=== PATIENT | female | born 1990 | race Caucasian/White ===

== ENCOUNTER 2016-11-14 22:56 | Emergency (ER) | payer OTHER ==
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
[2016-11-14] MEDS ORDERED: LET GEL TOPICAL 1 EA SYR TP ONE (23:59)
[2016-11-15] MEDS ORDERED: LET GEL TOPICAL 1 EA SYR TP ONE (00:03)
[2016-11-15 00:41] VITALS: BP 128/93; PULSE 80; RESP 16; TEMP 98.1; O2SAT 97
== END 2016-11-15 00:41 | disposition home or self-care (01) ==
DX: S09.90XA Unspecified injury of head, initial encounter (principal); S40.811A Abrasion of right upper arm, initial encounter; S80.811A Abrasion, right lower leg, initial encounter; S80.812A Abrasion, left lower leg, initial encounter; J45.909 Unspecified asthma, uncomplicated; W14.XXXA Fall from tree, initial encounter; Y99.8 Other external cause status; Y93.39 Activity, other involving climbing, rappelling and jumping off

== ENCOUNTER 2017-11-22 14:19 | Emergency (ER) | payer OTHER, BC ==
[2017-11-22] MEDS ORDERED: NS 1,000 ML IV ONE (14:42)
[2017-11-22] MEDS ORDERED: ONDANSETRON 4 MG/2 ML VIAL IVP ONE (14:42)
[2017-11-22] MEDS ORDERED: KETOROLAC 30 MG/1 ML SDV IVP ONE (14:42)
--- NOTE | 2017-11-22 14:42 | EDPHY ---
H & P Stated Complaint: Abd pain Time Seen by Provider: 11/22/17 14:38 HPI/ROS: HPI: This is a 26-year-old female who presents with Chief Complaint: Abdominal pain from [facility] Location: Left lower quadrant Quality: Pain Duration: Several days Signs and Symptoms: no fever, no nausea, no vomiting, no hematemesis, no blood in stool, no abdominal bloating, no diarrhea, no back pain, no urinary symptoms , no vaginal bleeding/discharge, no indigestion, no chest pain, no shortness of breath Timing: Acute, constant Severity: Moderate to severe Context: Patient has a history of ovarian cyst on the right side that was determined over by [facility] by pelvic ultrasound. At that time she had a complete pelvic exam that was"normal"per patient. She presents today with complaints of left lower quadrant pain that is constant, nonradiating, 8/10 in nature. She reports that she has decreased appetite secondary to the pain but denies any fever, nausea, vomiting, diarrhea , vaginal bleeding, vaginal discharge. Patient has a Marci IUD that is due to be exchanged sometime this year. Modifying Factors: None Comment: ROS: see HPI Constitutional: No fever, no chills, no weight loss Eyes: No blurred vision Respiratory: No shortness of breath, no cough Cardiovascular: No chest pain, no palpitations Gastrointestinal: No nausea, no vomiting, no diarrhea, no hematemesis, no blood in stool Genitourinary: No dysuria, no blood in urine Extremities: No myalgias, no edema Neurologic: No weakness, no numbness Skin: No rashes, no petechiae Hematologic: No bruising, no bleeding MEDICAL/SURGICAL/SOCIAL HISTORY: Medical/surgical history: concussion, anxiety, depression, tonsillectomy, wisdom teeth, ovarian cysts Social history: Student at [employer]. Nonsmoker. Family history noncontributory. CONSTITUTIONAL: Extremely well-appearing young adult white female, awake and alert, no obvious distress HEENT: Atraumatic and normocephalic, PERRL, EOMI. Nares patent; no rhinorrhea; no nasal mucosal edema. Tympanic membranes clear. Oropharynx clear, no exudate and moist pink mucosa. Airway patent. No lymphadenopathy. No meningismus. Cardiovascular: Normal S1/S2, mild tachycardia, regular rhythm, without murmur rub or gallop. PULMONARY/CHEST: Symmetrical and nontender. Clear to auscultation bilaterally. Good air movement. No accessory muscle usage. ABDOMEN: Soft, nondistended, nontender, no rebound, no guarding, no peritoneal signs, no masses or organomegaly. No CVAT. PELVIC: Patient adamantly refused due to recent pelvic exam EXTREMITIES: 2/2 pulses, strength 5/5, no deformities, no clubbing, no cyanosis or edema. NEUROLOGICAL: no focal neuro deficits. GCS 15. SKIN: Warm and dry, no erythema. no rash. Good capillary refill. Source: Patient Exam Limitations: No limitations - Medical/Surgical History Hx Asthma: Yes Hx Chronic Respiratory Disease: No Hx Diabetes: No Hx Cardiac Disease: No Hx Renal Disease: No Hx Cirrhosis: No Hx Alcoholism: No Hx HIV/AIDS: No Hx Splenectomy or Spleen Trauma: No Other PMH: concussion, anxiety, depression. tonsillectomy, wisdom teeth, ovarian cysts - Social History Smoking Status: Never smoked Constitutional: Initial Vital Signs Temperature (C) 36.3 C 11/22/17 14:22 Heart Rate 102 H 11/22/17 14:22 Respiratory Rate 18 11/22/17 14:22 Blood Pressure 116/83 H 11/22/17 14:22 O2 Sat (%) 92 11/22/17 14:22 O2 Delivery Mode Room Air Allergies/Adverse Reactions: budesonide [From Symbicort] Allergy (Verified 11/22/17 14:24) formoterol [From Symbicort] Allergy (Verified 11/22/17 14:24) Home Medications: Medication Instructions Recorded Albuterol Sulfate 11/14/16 Buspar (*) 11/14/16 Lexapro 10 MG 11/14/16 Melatonin 11/14/16 ZYRTEC 11/14/16 Cyclobenzaprine [Flexeril 10 MG 10 mg PO TID PRN #15 tab 11/22/17 (*)] oxyCODONE/APAP 5/325 [Percocet 1 - 2 tab PO Q4H PRN #10 tab 11/22/17 5/325 (*)] Medical Decision Making - Diagnostics Imaging Results: Imaging Impressions Pelvic/Renal Ultrasound 11/22/17 14:42 Impression: 1. No acute findings in the pelvis. 2. Simple 5.7 cm right ovarian cyst, for which annual ultrasound follow-up is recommended in a premenopausal patient. 3. IUD in good position. Findings discussed with Selina Hamm PAC 11/22/2017 at 15:36. ED Course/Re-evaluation: Vital signs reviewed and stable upon arrival. Labs, urinalysis, pelvic ultrasound, IV fluids, IV medications ordered Given IV Toradol 30 mg, IV Zofran 4 mg, IV morphine 4 mg, and 1 L normal saline 1519: Labs reviewed. No signs of leukocytosis/anemia/platelet dysfunction/JO/ electrolyte imbalance/. By radiologist who advised that there are no acute findings in the pelvic ultrasound. Simple 5.7 cm right ovarian cyst, for which annual ultrasound follow -up is recommended in a premenopausal patient. IUD in good position. Reassessed patient who reports that pain is relieved. Repeat exam is soft and nontender. Doubt surgical abdomen. Do not believe the CT abdomen and pelvis scan is warranted at this time as low yield for diverticulitis/perforation/ obstruction. Patient has not given a urine sample in 3 hr and reports that she does not have any urinary symptoms and prefers to be discharged home without waiting for urine sample. Advised patient to follow up with OBGYN for IUD exchange. Will give Flexeril and Percocet for pain control. This patient was seen under the supervision of my secondary supervising physician. I evaluated care for this patient independently. Discussed this patient with Dr. Streeter who did not see the patient. Differential Diagnosis: Abdominal pain in a female including but not limited to ovarian cyst, pelvic inflammatory disease, ovarian torsion, urinary tract infection, and appendicitis. - Data Points Laboratory Results: Laboratory Results 11/22/17 14:45 11/22/17 14:45 11/22/17 11/22/17 11/22/17 14:45 14:45 14:45 WBC 7.56 10^3/uL 10^3/uL (3.80-9.50) RBC 4.91 10^6/uL 10^6/uL (4.18-5.33) Hgb 15.8 g/dL g/dL (12.6-16.3) Hct 45.2 % % (38.0-47.0) MCV 92.1 fL fL (81.5-99.8) MCH 32.2 pg pg (27.9-34.1) MCHC 35.0 g/dL g/dL (32.4-36.7) RDW 12.0 % % (11.5-15.2) Plt Count 276 10^3/uL 10^3/uL (150-400) MPV 9.7 fL fL (8.7-11.7) Neut % (Auto) 49.9 % % (39.3-74.2) Lymph % (Auto) 39.8 % % (15.0-45.0) [place] % (Auto) 7.4 % % (4.5-13.0) Eos % (Auto) 2.1 % % (0.6-7.6) Baso % (Auto) 0.7 % % (0.3-1.7) Nucleat RBC Rel Count 0.0 % % (0.0-0.2) Absolute Neuts (auto) 3.77 10^3/uL 10^3/uL (1.70-6.50) Absolute Lymphs (auto) 3.01 10^3/uL H 10^3/uL (1.00-3.00) Absolute Monos (auto) 0.56 10^3/uL 10^3/uL (0.30-0.80) Absolute Eos (auto) 0.16 10^3/uL 10^3/uL (0.03-0.40) Absolute Basos (auto) 0.05 10^3/uL 10^3/uL (0.02-0.10) Absolute Nucleated RBC 0.00 10^3/uL 10^3/uL (0-0.01) Immature Gran % 0.1 % % (0.0-1.1) Immature Gran # 0.01 10^3/uL 10^3/uL (0.00-0.10) Sodium 139 mEq/L mEq/L (135-145) Potassium 4.2 mEq/L mEq/L (3.3-5.0) Chloride 104 mEq/L mEq/L (97-110) Carbon Dioxide 21 mEq/l L mEq/l (22-31) Anion Gap 14 mEq/L mEq/L (8-16) BUN 16 mg/dL mg/dL (7-23) Creatinine 0.7 mg/dL mg/dL (0.6-1.0) Estimated GFR > 60 Glucose 86 mg/dL mg/dL (70-100) Calcium 9.5 mg/dL mg/dL (8.5-10.4) Beta HCG, Qual NEGATIVE Medications Given: Discontinued Medications Sodium Chloride (Ns) 1,000 mls @ 0 mls/hr IV ONCE ONE; Wide Open PRN Reason: Protocol Stop: 11/22/17 14:43 Last Admin: 11/22/17 15:06 Dose: 1,000 mls Ketorolac Tromethamine (Toradol) 30 mg IVP EDNOW ONE Stop: 11/22/17 14:43 Last Admin: 11/22/17 15:03 Dose: 30 mg Morphine Sulfate (Morphine) 4 mg IVP EDNOW ONE Stop: 11/22/17 14:43 Last Admin: 11/22/17 15:02 Dose: 4 mg Ondansetron HCl (Zofran) 4 mg IVP EDNOW ONE Stop: 11/22/17 14:43 Last Admin: 11/22/17 15:01 Dose: 4 mg Departure - Departure Disposition: Home, Routine, Self-Care Clinical Impression: Ovarian cyst Qualifiers: Laterality: right Qualified Code(s): N83.201 - Unspecified ovarian cyst, right side Condition: Good Instructions: Ovarian Cyst (ED), Ruptured Ovarian Cyst (ED) Additional Instructions: Consume a minimum of 8-10 glasses of water or electrolyte fluid replacement drinks that include Gatorade, Powerade, Pedialyte. Eat a bland diet for the next 48 hours and then slowly advance as tolerated. Apply heating pad to your lower abdomen to help relieve symptoms. Take Flexeril every 8 hr as needed for muscle spasms. Take Percocet 1 tab every 4-6 hours as needed for severe, breakthrough pain not relieved by Tylenol or ibuprofen. Follow up with OBGYN within 1 week. Referrals: [facility],. [Clinic] - 3-4 days, if not improved Prescriptions: Cyclobenzaprine [Flexeril 10 MG (*)] 10 mg PO TID PRN #15 tab PRN Reason: Spasms oxyCODONE/APAP 5/325 [Percocet 5/325 (*)] 1 - 2 tab PO Q4H PRN #10 tab PRN Reason: Pain, Severe
[2017-11-22 14:53] LABS: PLATELET COUNT 276 10^3/uL (150-400)
[2017-11-22 16:16] VITALS: BP 118/77
== END 2017-11-22 16:15 | disposition home or self-care (01) ==
DX: N83.201 Unspecified ovarian cyst, right side (principal); E86.9 Volume depletion, unspecified; J45.909 Unspecified asthma, uncomplicated
CPT/HCPCS: 96374; J1885; J2270; J2405

== ENCOUNTER → 2018-05-13 | Outpatient (CLI) | payer OTHER | LOC: FIMAGING 17:09 | PROVIDERS: ATTEND Obstetrics & Gynecology | DX: N83.201 Unspecified ovarian cyst, right side (principal); T83.32XA Displacement of intrauterine contraceptive device, initial encounter; Z90.721 Acquired absence of ovaries, unilateral ==